=== PATIENT | female | born 1990 | race Caucasian/White ===

== ENCOUNTER 2017-06-29 14:33 | Outpatient (CLI) | payer BC | END 2017-06-29 14:34 | disposition home or self-care (01) | LOC: CTENTCT 14:33 | PROVIDERS: ATTEND Otolaryngology Plastic Surgery within the Head & Neck | DX: J32.8 Other chronic sinusitis (principal) | CPT/HCPCS: 70486 ==

== ENCOUNTER 2017-07-08 11:26 | Day surgery (SDC) | payer BC ==
[2017-07-07 11:04] VITALS: BMI 27.1
[2017-07-08] MEDS ORDERED: Oxymetazoline HCl 0.05% ( 15 ML ) ONE ×2 (11:38→14:07)
[2017-07-08 12:40] LABS: BHCG - Serum Negative (NEGATIVE); Pregs Control Background? CLEAR/WHITE (CLR/WHITE); Pregs Control Bar Appear? YES (CONTROL BAR)
[2017-07-08] MEDS ORDERED: Dexamethasone 20 MG/5 ML VIAL ONE (14:03)
[2017-07-08] MEDS ORDERED: Succinylcholine Chloride 20 MG/ML 10 ml SYRINGE FS ONE (14:03)
[2017-07-08] MEDS ORDERED: PROPOFOL 200 MG/20 ML VIAL ONE (14:03)
[2017-07-08] MEDS ORDERED: Lidocaine 1% PF 5 ML VIAL ONE (14:03)
[2017-07-08] MEDS ORDERED: Ondansetron HCl/PF 4 MG/2 ML Vial ONE ×2 (14:03→14:19)
[2017-07-08] MEDS ORDERED: Bacitracin Zinc Ointment 30 gm TUBE ONE (14:07)
[2017-07-08] MEDS ORDERED: Lidocaine 1% w/Epinephrine 1:200K 30 ML VIAL ONE (14:07)
[2017-07-08] MEDS ORDERED: Fentanyl 250 MCG/5 ML VIAL ONE (14:19)
--- NOTE | 2017-07-08 21:33 | OP ---
PREOPERATIVE DIAGNOSES: 1. Chronic rhinosinusitis. 2. Bilateral endoscopic sinus surgery, maxillary antrostomies. 3. Bilateral endoscopic sinus surgery, sphenoidotomies. 4. Bilateral endoscopic sinus surgery, frontal sinusotomies. 5. Bilateral inferior turbinate submucosal resection. POSTOPERATIVE DIAGNOSES: 1. Chronic rhinosinusitis. 2. Bilateral endoscopic sinus surgery, maxillary antrostomies. 3. Bilateral endoscopic sinus surgery, sphenoidotomies. 4. Bilateral endoscopic sinus surgery, frontal sinusotomies. 5. Bilateral inferior turbinate submucosal resection. SURGEON: Shan Serrato M.D. ESTIMATED BLOOD LOSS: 50 mL. COMPLICATIONS: None. ANESTHESIA: GETA. PROCEDURE IN DETAIL: The patient was taken to the operating room and placed supine on the table. Ge neral endotracheal anesthesia was obtained by the Anesthesia staff. Tube was secured in the left low er lip. Patient was placed in the beach chair position. Following this, Afrin pledgets were placed in the nasal cavity, as the patient was prepped and draped for standard nasal procedure. Following t his, Afrin pledgets were removed and 1% lidocaine 1:100,000 epinephrine was injected into the lateral nasal wall, inferior turbinates, and middle turbinates bilaterally. Following this, the 0-degree en doscope was advanced into the nasal cavity. The middle turbinates were identified and gently mediali zed using a [place] elevator. The uncinate process was then anteriorly fractured bilaterally using the ball-ended probe and then removed using the upbiting [place] forceps and the straight microdebride r. Following this, using the ball-ended probe, it was gently identify the natural maxillary sinus os tia and a curved microdebrider blade was used to widen the maxillary ostia bilaterally. Following th is, ethmoidal bulla was identified bilaterally and was punctured on its medial and inferior aspect wi th the microdebrider. Upbiting [place]ley forceps and straight microdebrider were used to remove the ethmoidal bulla as well as to identify the grand lamella bilaterally. The grand lamella was then pun ctured into the posterior ethmoidal cells and working from posterior to anterior, the ethmoidal cells were opened in a mucosal-sparing technique. Following this, the sphenoid sinus was approached throu gh the previous ethmoidectomies. The sphenoid sinus ostia were identified and were punctured using t he straight microdebrider. The sphenoidotomies were widened medially and inferiorly on both sides. Following this, the 40-degree radenoid blade and the 45-degree endoscope were used to further open th e frontal sinus ostia anteriorly and laterally using the microdebrider. Following this, the nasal ca vity was irrigated. Meropacks were placed within the middle meatus. The inferior turbinates was per formed bilaterally. Following this, the patient tolerated procedure well.
== END 2017-07-08 17:00 | disposition home or self-care (01) ==
LOC: SDC 11:26
PROVIDERS: ATTEND Otolaryngology Plastic Surgery within the Head & Neck
DX: J32.9 Chronic sinusitis, unspecified (principal); J45.909 Unspecified asthma, uncomplicated; E03.9 Hypothyroidism, unspecified; Z79.2 Long term (current) use of antibiotics; Z79.3 Long term (current) use of hormonal contraceptives; Z79.899 Other long term (current) drug therapy; Z88.0 Allergy status to penicillin
CPT/HCPCS: 84703; 85014; J0131; J1100; J2001; J2405; J2704; J3010